=== PATIENT | male | born 1945 | race Caucasian/White ===

== ENCOUNTER 2022-01-30 08:21 | Outpatient (CLI) | payer MEDICARE, SELFPAY ==
--- NOTE | ~2022-01-30 | MR_ITS ---
EXAMINATION: MR brain/brain stem wo con DATE: 01/30/2022 09:35 INDICATION: Family history of cerebral aneurysm. TECHNIQUE: Magnetic resonance imaging (MRI) of the brain and brainstem was performed without intraven ous contrast. COMPARISON: None. FINDINGS: There are scattered areas of nonspecific increased T2-weighted signal intensity in the cere bral white matter. There are small areas of cystic encephalomalacia in the deep parietal white matter bilaterally. There is no intracranial hemorrhage, acute infarction, or abnormal intracranial mass [place]. The ventricles are normal in size. There is mild mucosal thickening in the ethmoid sinuses. The orbits are normal. The mastoid air cells are normal. IMPRESSION: 1. Mild nonspecific cerebral white matter disease, which likely represents chronic small vessel ische sai disease. 2. Small areas of chronic cystic encephalomalacia in the deep parietal white matter bilaterally. 3. Note that this exam is not sensitive for cerebral aneurysm. If there is clinical concern for cereb ral aneurysm. Head MRA without contrast is recommended. Reviewed, dictated and finalized at location A. IMPRESSION: 1. Mild nonspecific cerebral white matter disease, which likely represents jointer machine anne small vessel ischemic disease. 2. Small areas of chronic cystic encephalomalacia in the deep parietal white ma tter bilaterally. 3. Note that this exam is not sensitive for cerebral aneurysm. If there is clin ical concern for cerebral aneurysm. Head MRA without contrast is recommended.
== END 2022-01-30 08:22 | disposition home or self-care (01) ==
PROVIDERS: PCP Internal Medicine; Visit Provider Internal Medicine
DX: R93.0 Abnormal findings on diagnostic imaging of skull and head, not elsewhere classified (principal); Z82.49 Family history of ischemic heart disease and other diseases of the circulatory system
CPT/HCPCS: 70551

== ENCOUNTER 2022-03-12 07:58 | Day surgery (SDC) | payer MEDICARE, SELFPAY ==
[2022-03-03 13:50] VITALS: BMI 35.2
--- NOTE | 2022-03-12 07:08 | P.PNAN_ITS ---
Anes - Initial Pre Proc Eval Procedure: Operation Date: 03/12/22 09:30 Proposed Procedures p Cataract Extraction with Lens Implant-Left Eye - Hunter Johnson MD Date/Time: 03/12/22 07:08 Surgeon: Hunter Johnson MD Pre Op Diagnosis: H25.12 Patient Data Age: 77 Gender: M Height: 1.83 m Weight: 118 kg Allergies Allergy/AdvReac Type Severity Reaction Status Date / Time No Known Allergies Allergy Verified 03/12/22 08:46 Home Medications Medication Instructions Recorded Confirmed Type aspirin 81 mg tablet,delayed 81 mg PO DAILY #90 tabs 10/19/19 03/03/22 Rx release (Adult Low Dose Aspirin) allopurinol 300 mg tablet 300 mg PO DAILY #90 tabs 02/04/21 03/03/22 Rx atorvastatin 10 mg tablet 10 mg PO DAILY #90 tabs 01/27/22 03/03/22 Rx losartan 100 1 tablet PO DAILY #90 tabs 02/17/22 03/03/22 Rx mg-hydrochlorothiazide 25 mg tablet budesonide-formoterol HFA 80 2 puff inhalation Q12H PRN Dyspnea 03/03/22 03/03/22 History mcg-4.5 mcg/actuation aerosol inhaler (Symbicort) naproxen 375 mg tablet 375 mg PO BID PRN Pain 03/03/22 03/03/22 History Patient hx anesthesia problems: none Family hx anesthesia problems: none Results Review: All pre-operative results and documents have been reviewed as part of the pre- operative evaluation. [facility] Past Medical History Medical History (Updated 03/12/22 @ 07:09 by Yoni Snyder DO) Essential (primary) hypertension Gout Hereditary and idiopathic peripheral neuropathy Other and unspecified hyperlipidemia Transaminitis Family History Family History Sibling Family history of liver disease Patient's brother is Acute myocardial infarction Father Family history of malignant neoplasm Patient's father is Mother Family history of Alzheimer's disease Family history of malignant neoplasm of breast in first degree relative Patient's mother is Social History Social History Smoking status: Former smoker Tobacco type: cigarettes Smoking end date: 08/10/85 Alcohol intake: current Drinks per week: 7 Alcohol use details: glass of wine a night Substance use: never Living arrangements: with family Spiritual care concerns: No Anes - Eval Final PreProcedure Day of Procedure 03/12/22 07:08 Patient weight: obese Heart: regular rate and rhythm Lungs: clear to auscultation Airway: Mallampati scale class II Neurological: alert and oriented Last oral intake: >/= 8 hours ASA classification: III Emergent: no Anesthetic plan: proceed Anesthesia type and monitoring: general GIVS and standard monitoring Results Review: All pre-operative results and documents have been reviewed as part of the pre- operative evaluation. Informed Consent: The patient's anesthetic plan and its attendant risks and benefits were discussed with the patient/family/POA. Questions were solicited and answers provided to the satisfaction of the patient/family/POA.
[2022-03-12 08:40] VITALS: BP 146/81; PULSE 68; RESP 18; TEMP 36.2; O2SAT 98
[2022-03-12] MEDS: OFLOXACIN 0.3% OPHTH SOLN 5 ML BTL 1 DROP AFFCTD EYE (08:47)
[2022-03-12] MEDS: TETRACAINE HCL 0.5% OPHTH SOLN 4 ML BTL 1 DROP AFFCTD EYE ×3 (08:47→08:57)
--- NOTE | 2022-03-12 09:06 | WPDHPUPDATE1 ---
History and Physical Update Update Date/Time: 03/12/22 09:06 History and Physical has been reviewed, including an updated exam of the patient. There are NO changes in the patient's condition. Risks, benefits, and alternatives have been discussed and questions answered. Patient agrees to proceed with procedure.
[2022-03-12 09:10] VITALS: BMI 38.5
[2022-03-12] MEDS: LIDOCAINE HCL 2% JELLY 5 ML TUBE 1 APPLIC AFFCTD EYE (09:52)
[2022-03-12] MEDS: LIDOCAINE HCL 1% PF INJ 5 ML VIAL 1 ML INTRAOCULA (10:05)
[2022-03-12] MEDS: HOME MEDICATION 1 EACH AFFCTD EYE (10:16)
[2022-03-12] MEDS: acetaZOLAMIDE TAB 250 MG TABLET PO (10:27)
[2022-03-12 10:30] VITALS: BP 127/76; PULSE 64; RESP 14; TEMP 36.6; O2SAT 94
--- NOTE | 2022-03-12 10:55 | WPDANESPN ---
Anes - Prog Note Post-Op Date/Time: 03/12/22 10:55 Cardiovascular status: normal Respiratory status: normal Airway patency: baseline Mental status: baseline Post-Op hydration status: normal Vital Signs: Last Vital Signs Temp 36.6 C 03/12/22 10:30 Pulse 64 03/12/22 10:30 Resp 14 03/12/22 10:30 BP 127/76 03/12/22 10:30 Pulse Ox 94 03/12/22 10:30 O2 Del Method Room Air 03/12/22 10:30 Pain Score (VAS): 0 Post-procedural complaints: none Patient Feedback: Patient satisfied with anesthetic care. Other Findings: Patient vital signs back to baseline. Patient denies nausea and vomiting. Patient's pain under control. Patient OK for discharge.
--- NOTE | 2022-03-12 12:43 | W.PM.PROC2 ---
Procedure Note - Detailed Date of Procedure 03/12/22 Pre-op Diagnosis H25.12 Post-op Diagnosis Same Procedure Performed Cataract Extraction (by Phacoemulsification) and lntraocular Lens Implant LEFT eye Surgeon Hunter Johnson MD Description of Procedure The eye was anesthetized with topical 0.75% bupivacaine. After intravenous sedation and placement of monitors, the patient was prepped and draped in the usual sterile manner. A lid speculum was placed. A paracentesis was made, and preservative free 1% lidocaine was instilled in the anterior chamber. The anterior chamber was then filled with Viscoat viscoelastic. A esteban keratome was used to create the wound. Continuous tear anterior capsulotomy was performed. The lens was hydro dissected before being removed with phacoemulsification. The remaining lenticular cortex was removed with aspiration. The capsular bag was polished and filled with viscoelastic material. An intraocular lens was chosen, inspected, irrigated and placed within the capsular bag where it was seen to be centered and stable. The viscoelastic material was aspirated. The wound was closed and found to be watertight. Ciloxan drops were placed in the eye. The speculum was removed. A Bridges shield was applied. The patient tolerated the procedure well and left the operating room in satisfactory condition. Implants See chart Complications None Condition Stable Disposition Same day
== END 2022-03-12 10:42 | disposition home or self-care (01) ==
PROVIDERS: PCP Family Medicine; Visit Provider Student in an Organized Health Care Education/Training Program
PROC: (CPT 66983; principal; 2022-03-12 09:30)
DX: H25.12 Age-related nuclear cataract, left eye (principal)
CPT/HCPCS: 66984

== ENCOUNTER 2022-04-09 08:52 | Day surgery (SDC) | payer MEDICARE, SELFPAY ==
[2022-03-27 12:01] VITALS: BMI 32.3
--- NOTE | 2022-04-08 20:55 | WPDANESEPPF ---
Anes - Initial Pre Proc Eval Procedure: Operation Date: 04/09/22 10:00 Proposed Procedures p Cataract Extraction with Lens Implant-Right Eye - Hunter Johnson MD Date/Time: 04/08/22 20:55 Surgeon: Hunter Johnson MD Pre Op Diagnosis: H25.11 Patient Data Age: 77 Gender: M Height: 1.83 m Weight: 108 kg Allergies Allergy/AdvReac Type Severity Reaction Status Date / Time No Known Allergies Allergy Verified 04/09/22 09:27 Home Medications Medication Instructions Recorded Confirmed Type aspirin 81 mg tablet,delayed 81 mg PO DAILY #90 tabs 10/19/19 04/09/22 Rx release (Adult Low Dose Aspirin) allopurinol 300 mg tablet 300 mg PO DAILY #90 tabs 02/04/21 04/09/22 Rx atorvastatin 10 mg tablet 10 mg PO DAILY #90 tabs 01/27/22 04/09/22 Rx losartan 100 1 tablet PO DAILY #90 tabs 02/17/22 04/09/22 Rx mg-hydrochlorothiazide 25 mg tablet budesonide-formoterol HFA 80 2 puff inhalation Q12H PRN Dyspnea 03/03/22 04/09/22 History mcg-4.5 mcg/actuation aerosol inhaler (Symbicort) naproxen 375 mg tablet 375 mg PO BID PRN Pain 03/03/22 04/09/22 History Patient hx anesthesia problems: none Family hx anesthesia problems: none Results Review: All pre-operative results and documents have been reviewed as part of the pre-operative evaluation. [facility] Past Medical History Medical History (Updated 03/12/22 @ 07:09 by Yoni Snyder DO) Essential (primary) hypertension Gout Hereditary and idiopathic peripheral neuropathy Other and unspecified hyperlipidemia Transaminitis Family History Family History Sibling Family history of liver disease Patient's brother is Acute myocardial infarction Father Family history of malignant neoplasm Patient's father is Mother Family history of Alzheimer's disease Family history of malignant neoplasm of breast in first degree relative Patient's mother is Social History Social History Smoking status: Former smoker Tobacco type: cigarettes Smoking end date: 08/10/85 Additional smoking assessment comments: quit in 1983 Alcohol intake: current Drinks per week: 7 Alcohol use details: 6 beers a week Substance use: never Substance use type: does not use Living arrangements: with family Spiritual care concerns: No Anes - Eval Final PreProcedure Day of Procedure 04/08/22 20:55 Patient weight: obese Heart: regular rate and rhythm Lungs: clear to auscultation and normal air movement Airway: Mallampati scale class II Neurological: alert and oriented Last oral intake: >/= 8 hours ASA classification: III Emergent: no Anesthetic plan: proceed Anesthesia type and monitoring: monitored anesthesia care and standard monitoring Results Review: All pre-operative results and documents have been reviewed as part of the pre-operative evaluation. Informed Consent: The patient's anesthetic plan and its attendant risks and benefits were discussed with the patient/family/POA. Questions were solicited and answers provided to the satisfaction of the patient/family/POA.
[2022-04-09 09:00] VITALS: BP 131/75; PULSE 71; RESP 20; TEMP 36.4; O2SAT 98
[2022-04-09] MEDS: OFLOXACIN 0.3% OPHTH SOLN 5 ML BTL 1 DROP AFFCTD EYE (09:13)
[2022-04-09] MEDS: TETRACAINE HCL 0.5% OPHTH SOLN 4 ML BTL 1 DROP AFFCTD EYE ×2 (09:13→09:18)
[2022-04-09] MEDS: LIDOCAINE HCL 2% JELLY 5 ML TUBE 1 APPLIC AFFCTD EYE (10:15)
[2022-04-09] MEDS: LIDOCAINE HCL 1% LOCAL INJ 2 ML AMPUL INFILTRATE (10:38)
[2022-04-09] MEDS: HOME MEDICATION 1 EACH AFFCTD EYE (10:45)
[2022-04-09] MEDS: NEOMYCIN/POLYMYXIN/DEXAMETH OP OINT 3.5 GM TUBE 1 APPLIC AFFCTD EYE (10:48)
[2022-04-09 10:50] VITALS: BP 121/62; PULSE 62; RESP 16; O2SAT 98
[2022-04-09] MEDS: acetaZOLAMIDE TAB 250 MG TABLET PO (10:55)
--- NOTE | 2022-04-09 11:31 | WPDANESPN ---
Anes - Prog Note Post-Op Date/Time: 04/09/22 11:31 Cardiovascular status: normal Respiratory status: normal Airway patency: baseline Mental status: baseline Post-Op hydration status: normal Vital Signs: Last Vital Signs Temp 36.4 C L 04/09/22 09:00 Pulse 62 04/09/22 10:50 Resp 16 04/09/22 10:50 BP 121/62 04/09/22 10:50 Pulse Ox 98 04/09/22 10:50 O2 Del Method Room Air 04/09/22 10:50 Pain Score (VAS): 0 Patient Feedback: Patient satisfied with anesthetic care.
--- NOTE | 2022-04-09 11:53 | W.PM.PROC2 ---
Procedure Note - Detailed Date of Procedure 04/09/22 Pre-op Diagnosis H25.11 Post-op Diagnosis Same Procedure Performed Cataract Extraction (by Phacoemulsification) and lntraocular Lens Implant RIGHT eye Surgeon Hunter Johnson MD Description of Procedure The eye was anesthetized with topical 0.75% bupivacaine. After intravenous sedation and placement of monitors, the patient was prepped and draped in the usual sterile manner. A lid speculum was placed. A paracentesis was made, and preservative free 1% lidocaine was instilled in the anterior chamber. The anterior chamber was then filled with Viscoat viscoelastic. A esteban keratome was used to create the wound. Continuous tear anterior capsulotomy was performed. The lens was hydro dissected before being removed with phacoemulsification. The remaining lenticular cortex was removed with aspiration. The capsular bag was polished and filled with viscoelastic material. An intraocular lens was chosen, inspected, irrigated and placed within the capsular bag where it was seen to be centered and stable. The viscoelastic material was aspirated. The wound was closed and found to be watertight. Ciloxan drops were placed in the eye. The speculum was removed. A Bridges shield was applied. The patient tolerated the procedure well and left the operating room in satisfactory condition. Implants See chart Complications None Condition Stable Disposition Same day
== END 2022-04-09 11:16 | disposition home or self-care (01) ==
PROVIDERS: PCP Family Medicine; Visit Provider Student in an Organized Health Care Education/Training Program
PROC: (CPT 66983; principal; 2022-04-09 10:00)
DX: H25.11 Age-related nuclear cataract, right eye (principal)
CPT/HCPCS: 66984

== ENCOUNTER 2022-08-07 07:56 | Outpatient (CLI) | payer MEDICARE, SELFPAY ==
--- NOTE | 2022-08-28 21:31 | WPDSLEEPSTUD ---
Sleep Study Date of Study: 08/07/22 Ordering Provider: Randy Grace DO Interpreting Physician: Shobha Armendariz DO Sleep Study Type: Split Polysomnogram Height: 1.83 m Weight: 131.542 kg Body Mass Index: 39.3 Neck Circumference (inches): 21 [place]: 4 Reason for Sleep Study Sleep-maintenance insomnia Sleep History The patient is a 77-year-old male with hypertension, hyperlipidemia gout and history of tobacco use that had a sleep study ordered for difficulty maintaining sleep throughout the night. the patient rarely awakens from sleep short of breath. He denies awakening at night with heartburn, belching or cough. He occasionally snores and is occasionally loud enough that others complain. He rarely has trouble sleeping when he has a cold. He denies waking up gasping for air throughout the night. He denies having breathing problems at night observed by himself or others. He denies sweating excessively at night. He denies having heart palpitations or irregular heartbeats during the night. He denies falling asleep during the day and while driving. He denies sleep paralysis and cataplexy. He occasionally experiences vivid dreamlike scenes upon awakening or falling asleep. He denies feeling afraid of going to sleep. He rarely has nightmares but frequently remembers his dreams. He occasionally has thoughts racing through his mind. He rarely feels sad, depressed or anxious. He rarely has muscular tension. He occasionally notices parts of his body jerk. He occasionally kicks during the night. He frequently experiences crawling and aching feelings in his legs and frequently has leg pain during the night. He denies grinding his teeth during sleep and denies awakening with morning jaw pain. He is constantly bothered by pain during the day but rarely awakened by pain during the night. He frequently wakes up feeling stiff in the morning. He frequently wakes up with sore or achy muscles. He frequently wakes up with pain in the neck, spine or other joints. The patient goes to bed between 9-930 p.m. on weekdays and between 10-11 p.m. on the weekends. It takes 10-15 minutes for him to fall asleep. He wakes up once throughout the night but has difficulty falling back asleep. He wakes up at 4:15 a.m. on weekdays and between 7-8 a.m. on the weekends. He typically gets 4 hours of sleep per night. The patient currently lives with his . He does not consume any caffeinated beverages within 2 hours of bedtime. He does not engage in physical exercise before bedtime. He denies reading before falling asleep. He will watch television before falling asleep. He denies taking naps in the afternoon or the evening. He drinks 4 cups of caffeinated beverage per day. He drinks 5 glasses of wine per week. He quit smoking several years ago. He denies recreational drug use. [facility] Past Medical History Medical History Essential (primary) hypertension Gout Hereditary and idiopathic peripheral neuropathy Other and unspecified hyperlipidemia Transaminitis Family History Family History Sibling Family history of liver disease Patient's brother is Acute myocardial infarction Father Family history of malignant neoplasm Patient's father is Mother Family history of Alzheimer's disease Family history of malignant neoplasm of breast in first degree relative Patient's mother is Social History Social History Smoking status: Former smoker Tobacco type: cigarettes Smoking end date: 08/10/85 Additional smoking assessment comments: quit in 1983 Alcohol intake: current Drinks per week: 7 Alcohol use details: 6 beers a week Substance use: never Substance use type: does not use Lack of Transportatio
[2022-08-28 21:37] VITALS: BMI 39.3
--- NOTE | 2022-11-05 10:41 | SLEEP ---
pt returned for titration new calls under new visit
== END 2022-08-08 07:19 | disposition home or self-care (01) ==
PROVIDERS: PCP Family Medicine; Visit Provider Family Medicine
DX: G47.10 Hypersomnia, unspecified (principal); G47.33 Obstructive sleep apnea (adult) (pediatric)
CPT/HCPCS: 95811

== ENCOUNTER 2022-09-17 13:32 | Outpatient (CLI) | payer MEDICARE, SELFPAY ==
--- NOTE | 2022-09-17 13:43 | ECHO_ITS ---
Patient Info Name: Caio Camacho Age: 77 years : 1945 Gender: Male Ht: 72 in Wt: 280 lbs BSA: 2.59 m2 HR: 71 bpm BP: 173 / 86 mmHg Heart Rhythm: Sinus Rhythm Technical Quality: Fair Exam Date: 09/17/2022 1:50 PM Exam Location: [facility] Patient Status: Outpatient Admit Date: 09/17/2022 Staff Ordering Physician: Randy Grace DO Airplane Patroller: Georgina Braxton RDCS Attending Provider: Randy Grace DO Referring Physician: Lesly MCCABE; Exam Type: CA echo doppler color flow Study Info Indications R06.02 - Shortness of breath Complete two-dimensional, color flow and Doppler transthoracic echocardiogram is performed. Summary 1. Complete two-dimensional, color flow and Doppler transthoracic echocardiogram is performed. 2. Left ventricular chamber dimension is normal. 3. Ventricular septum is sigmoid shaped. No LVOT obstruction. 4. Left ventricular systolic function is normal, estimated at 60-65%. 5. There is moderately increased left ventricular wall thickness. 6. The left ventricular diastolic function is grade II diastolic dysfunction. 7. E/e' 11 is mildly elevated. 8. Left atrial chamber dimension is mildly enlarged. 9. There is moderate aortic valve sclerosis. 10. There is mild to moderate aortic valve stenosis with a peak velocity of 261 cm/s, mean gradient of 13 mmHg, and aortic valve area of 1.4 cm2. 11. There is mild aortic valve regurgitation. 12. No pulmonary hypertension, estimated pulmonary arterial systolic pressure is 19 mmHg. 13. Dilated inferior vena cava with >50% collapse upon inspiration consistent with elevated right atrial pressure, 10 mmHg. Left Ventricle E/e' 11 is mildly elevated. Ventricular septum is sigmoid shaped. No LVOT obstruction. Left ventricular chamber dimension is normal. Left ventricular systolic function is normal, estimated at 60-65%. There is moderately increased left ventricular wall thickness. The left ventricular diastolic function is grade II diastolic dysfunction. Right Ventricle Right ventricular systolic function is normal and with normal TAPSE 3.1 cm. Right ventricular chamber dimension is normal. Left Atria Left atrial chamber dimension is mildly enlarged. Right Atria Right atrial chamber dimension is normal. Aortic Valve The aortic valve is trileaflet. There is moderate aortic valve sclerosis. There is mild to moderate aortic valve stenosis with a peak velocity of 261 cm/s, mean gradient of 13 mmHg, and aortic valve area of 1.4 cm2. There is mild aortic valve regurgitation. Pulmonic Valve There is no pulmonic regurgitation. Mitral Valve There is no mitral valve stenosis. There is no mitral valve regurgitation. Tricuspid Valve There is no tricuspid valve regurgitation. No pulmonary hypertension, estimated pulmonary arterial systolic pressure is 19 mmHg. Pericardium/Pleural There is no pericardial effusion. Inferior Vena Cava Dilated inferior vena cava with >50% collapse upon inspiration consistent with elevated right atrial pressure, 10 mmHg. Aorta The aortic root size at the sinus of Valsalva is normal. Left Ventricular Outflow Tract Name Value Normal LVOT 2D LVOT Diameter 2.0 cm
== END 2022-09-17 13:33 | disposition home or self-care (01) ==
PROVIDERS: PCP Family Medicine; Visit Provider Family Medicine
DX: G47.33 Obstructive sleep apnea (adult) (pediatric) (principal); I35.1 Nonrheumatic aortic (valve) insufficiency
CPT/HCPCS: 93306

== ENCOUNTER 2022-09-23 08:25 | Outpatient (CLI) | payer MEDICARE, SELFPAY ==
--- NOTE | 2022-10-16 11:11 | WPDSLEEPSTUD ---
Sleep Study Date of Study: 09/23/22 Ordering Provider: Randy Grace DO Interpreting Physician: Malinda Lara MD Sleep Study Type: CPAP Titration Height: 1.83 m Weight: 127.006 kg Body Mass Index: 38.0 Neck Circumference (inches): 21 [place]: 4 Reason for Sleep Study obstructive sleep apnea, Sleep History Caio Mcdermott is a 77-year-old male with hypertension, hyperlipidemia, gout, and history of tobacco use. On Sep 07, 2022 he had a split night study showing severe obstructive sleep apnea with an AHI 69.2, periodic breathing, with only 19 minutes of sleep during the titration. His initial study was ordered for complaints of difficulty maintaining sleep throughout the night. The patient rarely awakens from sleep short of breath.? He denies awakening at night with heartburn, belching or cough.? He occasionally snores and is occasionally loud enough that others complain.? He rarely has trouble sleeping when he has a cold.? He denies waking up gasping for air throughout the night.? He denies having breathing problems at night observed by himself or others.? He denies sweating excessively at night.? He denies having heart palpitations or irregular heartbeats during the night.? He denies falling asleep during the day and while driving.? He denies sleep paralysis and cataplexy.? He occasionally experiences vivid dreamlike scenes upon awakening or falling asleep.? He denies feeling afraid of going to sleep.? He rarely has nightmares but frequently remembers his dreams.? He occasionally has thoughts racing through his mind.? He rarely feels sad, depressed or anxious.? He rarely has muscular tension.? He occasionally notices parts of his body jerk.? He occasionally kicks during the night.? He frequently experiences crawling and aching feelings in his legs and frequently has leg pain during the night.? He denies grinding his teeth during sleep and denies awakening with morning jaw pain.? He is constantly bothered by pain during the day but rarely awakened by pain during the night.? He frequently wakes up feeling stiff in the morning.? He frequently wakes up with sore or achy muscles.? He frequently wakes up with pain in the neck, spine or other joints.? Normal bedtime is between 9:00 p.m.-9:30 p.m. on weekdays, between 10-11 p.m. on the weekends.? It takes 10-15 minutes for him to fall asleep.? He wakes up once throughout the night but has difficulty returning to sleep. He wakes up at 4:15 a.m. on weekdays and between 7-8 a.m. on the weekends.? He typically gets 4 hours of sleep per night.? The patient currently lives with his .?He denies taking naps in the afternoon or the evening.? Habits: Former smoker, quit several years ago. Caffeine: 4 cups a day. Alcohol: 5 glasses of wine per week.? No recreational substances. [facility] Past Medical History Medical History Essential (primary) hypertension Gout Hereditary and idiopathic peripheral neuropathy Other and unspecified hyperlipidemia Transaminitis Family History Family History Sibling Family history of liver disease Patient's brother is Acute myocardial infarction Father Family history of malignant neoplasm Patient's father is Mother Family history of Alzheimer's disease Family history of malignant neoplasm of breast in first degree relative Patient's mother is Social History Social History Smoking status: Former smoker Tobacco type: cigarettes Smoking end date: 08/10/85 Additional smoking assessment comments: quit in 1983 Alcohol intake: current Drinks per week: 7 Alcohol use details: 6 beers a week Substance use: never Substance use type: does not use Lack of Transportation: No Lack of Food: Never True Current Housing: I Have Housing Concer
[2022-10-16 13:15] VITALS: BMI 38.0
== END 2022-09-24 06:45 | disposition home or self-care (01) ==
LOC: ANHCSM 08:28
PROVIDERS: PCP Family Medicine; Visit Provider Family Medicine
DX: G47.33 Obstructive sleep apnea (adult) (pediatric) (principal); G25.81 Restless legs syndrome
CPT/HCPCS: 95811

== ENCOUNTER 2022-10-09 10:24 | Outpatient (CLI) | payer MEDICARE, SELFPAY ==
[2022-10-09 19:46] LABS: Alanine Aminotransferase 73 U/L (6-50); Albumin Level 4.6 g/dL (3.5-5.1); Alkaline Phosphatase 97 U/L (38-126); Anion Gap 7 mmol/L (8-16); Aspartate Amino Transferase 81 U/L (17-59); Blood Urea Nitrogen 17 mg/dL (9-20); Calcium 9.1 mg/dL (8.4-10.2); Carbon Dioxide 26 mmol/L (22-30); Chloride 105 mmol/L (98-107); Cholesterol 172 mg/dL (0-200); Estimated Glomerular Filt Rate > 60; Glucose 105 mg/dL (65-110); HDL Direct 38 mg/dL; Potassium 3.9 mmol/L (3.4-5.0); Sodium 138 mmol/L (137-145); Triglycerides 298 mg/dL (<150)
[2022-10-09 20:14] LABS: LDL Cholesterol Direct 80 mg/dL
[2022-10-09 20:16] LABS: Prostate Specific Antigen 0.4 ng/mL (< OR = 4.0)
== END 2022-10-09 10:25 | disposition home or self-care (01) ==
LOC: ANHGOSHLAB 10:26
PROVIDERS: PCP Family Medicine; Visit Provider Family Medicine
DX: E78.5 Hyperlipidemia, unspecified (principal); I10 Essential (primary) hypertension; Z12.5 Encounter for screening for malignant neoplasm of prostate; M10.9 Gout, unspecified
CPT/HCPCS: 36415; 80053; 80061; 84153; 84550; G0103

== ENCOUNTER 2022-10-13 10:26 | Outpatient (CLI) | payer MEDICARE, SELFPAY ==
--- NOTE | ~2022-10-13 | US_ITS ---
EXAMINATION: US retroperitoneal duplex ltd DATE: 10/13/2022 11:09 INDICATION: hypertension TECHNIQUE: Multiple grayscale, color Doppler, and pulsed Doppler images of the kidneys and renal keesha cristina were obtained. COMPARISON: None. FINDINGS: The aorta peak systolic velocity is 107 cm/s. The right renal artery peak systolic velocity is 111 cm /s in the proximal segment, 93 cm/s in the mid segment, and 83 cm/s in the distal segment. The left r enal artery peak systolic velocity is 95 cm/s in the proximal segment, 79 cm/s in the mid segment, an d 87 cm/s in the distal segment. IMPRESSION: 1. No Doppler evidence of renal artery stenosis. Reviewed, dictated and finalized at location A. [facility] PROCESSING
== END 2022-10-13 10:27 | disposition home or self-care (01) ==
PROVIDERS: PCP Family Medicine; Visit Provider Internal Medicine
DX: I10 Essential (primary) hypertension (principal)
CPT/HCPCS: 93976

== ENCOUNTER 2023-11-09 11:50 | Emergency (ER) | payer MEDICARE, SELFPAY ==
--- NOTE | ~2023-11-09 | XR_ITS ---
EXAMINATION: XR chest 2V DATE: 11/09/2023 12:38 INDICATION: Cough. TECHNIQUE: Frontal and lateral views of the chest were obtained on 3 radiographs. COMPARISON: None. FINDINGS: A calcified right lung nodule is consistent with old granulomatous disease. There is no pne umonia, pleural effusion, or pneumothorax. The heart size is normal. IMPRESSION: 1. No acute cardiopulmonary disease. Reviewed, dictated and finalized at location A.
[2023-11-09 11:59] VITALS: BP 145/66; PULSE 73; RESP 18; TEMP 36.2; O2SAT 98
--- NOTE | 2023-11-09 12:09 | ED.URI ---
HPI - URI/Sore Throat General Chief Complaint: Upper Respiratory Infection Stated Complaint: Cough Source: patient, RN notes reviewed and old records reviewed Mode of arrival: ambulatory Limitations: no limitations History of Present Illness HPI Narrative: 78-year-old male to [facility] for complaint of persistent cough for 2 weeks. Patient endorses mucus production in the morning that transitions to dry cough throughout the day. Patient denies fever, sick contacts, allergies, tobacco history. Patient in no acute distress. Respirations even and nonlabored. Patient able to speak in full sentences. Patient to tolerate fluids by mouth. Related Data Allergies Allergy/AdvReac Type Severity Reaction Status Date / Time No Known Allergies Allergy Verified 11/09/23 12:15 Review of Systems Review of Systems: All systems reviewed & are unremarkable except as noted in HPI and below Constitutional: Constitutional: Reports as per HPI, Denies chills and Denies fever(s) Eyes: Eyes: Reports no additional eye complaints ENT: Reports as per HPI and Denies sore throat Cardiovascular: Cardiovascular: Reports no additional cardiovascular complaints, Denies chest pain and Denies dyspnea Respiratory: Respiratory: Reports no additional respiratory complaints, Reports cough, Denies hemoptysis and Denies dyspnea Musculoskeletal: Musculoskeletal: Reports no additional musculoskeletal complaints Neurologic: Reports system reviewed and no additional complaints, except as documented Psychiatric: Psychiatric: Reports no additional psychiatric complaints PMFSH Past Medical History Medical History Essential (primary) hypertension Gout Hereditary and idiopathic peripheral neuropathy Other and unspecified hyperlipidemia Transaminitis Family History Family History Sibling Family history of liver disease Patient's brother is Acute myocardial infarction Father Family history of malignant neoplasm Patient's father is Mother Family history of Alzheimer's disease Family history of malignant neoplasm of breast in first degree relative Patient's mother is Social History Social History Smoking status: Former smoker Tobacco type: cigarettes Smoking end date: 08/10/85 Additional smoking assessment comments: quit in 1983 Alcohol intake: current Drinks per week: 7 Alcohol use details: 6 beers a week Substance use: never Substance use type: does not use Lack of Transportation: No Lack of Food: Never True Current Housing: I Have Housing Concerned About Future Housing: No Difficulty Paying Gas/Electric Bills: No Difficulty Paying for Meds: No Currently Unemployed: No Education: Bachelor's Degree Difficulty w/ Childcare or Family Care: No Living arrangements: with family Spiritual care concerns: No Comments At the time of my signature, I reviewed and agree with the nursing past medical, surgical, social, and family history. There is no relevant family history pertinent to the patient complaint. Exam Const: General: cooperative, healthy appearing, comfortable, no acute distress, alert and well nourished; No ill appearing Nutritional Appearance: well nourished Orientation/consciousness: patient oriented x3 Limitations: no limitations HENMT: Head: normal to inspection Ears: external ears normal and TM abnormal with fluid behind the TM bilateral Face/Nose/Sinus: Normal external nose present, Normal nares present, normal facial exam, No erythema and No edema Face and sinus: normal facial exam, no erythema and no edema Mouth: Yes Normal oral and palatal mucosa present Throat: posterior oropharynx abnormal and postnasal drainage Eyes: General: appearance normal,
== END 2023-11-09 13:22 | disposition home or self-care (01) ==
PROVIDERS: Emergency Provider Nurse Practitioner Family
DX: J40 Bronchitis, not specified as acute or chronic (principal); J06.9 Acute upper respiratory infection, unspecified; Z87.891 Personal history of nicotine dependence; I10 Essential (primary) hypertension; M10.9 Gout, unspecified; E78.49 Other hyperlipidemia
CPT/HCPCS: 71046; 99213; G0463